=== PATIENT | female | born 1955 | race Caucasian/White ===

== ENCOUNTER 2017-04-11 15:47 | Outpatient (CLI) | payer BC | END 2017-04-11 15:48 | disposition home or self-care (01) | LOC: BICMAMMO 15:47 | PROVIDERS: ATTEND Obstetrics & Gynecology | DX: Z12.31 Encounter for screening mammogram for malignant neoplasm of breast (principal); Z80.3 Family history of malignant neoplasm of breast | CPT/HCPCS: 77063; 77067 ==

== ENCOUNTER 2017-12-15 08:03 | Outpatient (CLI) | payer BC | END 2017-12-15 08:04 | disposition home or self-care (01) | LOC: BICMAMMO 08:03 | PROVIDERS: ATTEND Obstetrics & Gynecology | DX: Z12.31 Encounter for screening mammogram for malignant neoplasm of breast (principal); R92.1 Mammographic calcification found on diagnostic imaging of breast; Z80.3 Family history of malignant neoplasm of breast | CPT/HCPCS: 77063; 77067 ==

== ENCOUNTER 2020-01-27 09:49 | Outpatient (CLI) | payer MEDICARE, BC ==
--- NOTE | 2020-01-27 10:39 | BD ---
EXAM: DEXA bone density examination HISTORY: 64-year-old postmenopausal female for screening COMPARISON: None FINDINGS: L1--bone mineral density 0.962 g/sq cm; T score -0.3 L2--bone mineral density 0.912 g/sq cm; T score -1.1 L3--bone mineral density 0.917 g/sq cm; T score -1.5 L4--bone mineral density 0.920 g/sq cm; T score -1.3 Total L1-L4--bone mineral density 0.928 g/sq cm; T score -1.1 Left femoral neck--bone mineral density0.611; T score -2.1 Total proximal left femur--bone mineral density 0.816; T score 1.0 IMPRESSION: Osteopenia. This patient has a 10 year WHO fracture risk of a major osteoporotic fracture of 20% and of a hip fracture of 1.9%.
--- NOTE | 2020-01-27 10:50 | MMO ---
Bilateral MAMMO Bilat Screen [facility]. CLINICAL HISTORY: Patient is 64 years old and is seen for screening. The patient has no family history of breast cancer. The patient has no personal history of cancer. VIEWS: The views performed were: bilateral craniocaudal with tomosynthesis and bilateral mediolateral oblique with tomosynthesis. FILMS COMPARED: The present examination has been compared to prior imaging studies performed at [facility] on 04/11/2017 and 12/15/2017, and at [facility] on 11/21/2015. This study has been interpreted with the assistance of computer-aided detection. MAMMOGRAM FINDINGS: The breasts are heterogeneously dense, which could obscure a lesion on mammography. There are stable benign appearing calcifications seen in both breasts. Nodularity is stable. There are no suspicious masses, suspicious calcifications, or new areas of architectural distortion. IMPRESSION: THERE IS NO MAMMOGRAPHIC EVIDENCE OF MALIGNANCY. A ROUTINE FOLLOW-UP MAMMOGRAM IN 1 YEAR IS RECOMMENDED. THE RESULTS OF THIS EXAM WERE SENT TO THE PATIENT. ACR BI-RADS Category 2 - Benign finding MAMMOGRAPHY NOTE: 1. A negative mammogram report should not delay a biopsy if a dominant of clinically suspicious mass is present. 2. Approximately 10% to 15% of breast cancers are not detected by mammography. 3. Adenosis and dense breasts may obscure an underlying neoplasm. Reported by: JENNIFER BENAVIDES MD Electonically Signed: [id number]
== END 2020-01-27 09:50 | disposition home or self-care (01) ==
LOC: BICMAMMO 09:49
PROVIDERS: ATTEND Registered Nurse
DX: Z12.31 Encounter for screening mammogram for malignant neoplasm of breast (principal); Z13.820 Encounter for screening for osteoporosis; Z78.0 Asymptomatic menopausal state; M85.89 Other specified disorders of bone density and structure, multiple sites
CPT/HCPCS: 77063; 77067; 77080

== ENCOUNTER 2021-02-15 13:26 | Outpatient (CLI) | payer MEDICARE, BC | END 2021-02-15 13:27 | disposition home or self-care (01) | LOC: BICMAMMO 13:26 | PROVIDERS: ATTEND Registered Nurse | DX: Z12.31 Encounter for screening mammogram for malignant neoplasm of breast (principal) | CPT/HCPCS: 77063; 77067 ==

== ENCOUNTER 2022-02-18 12:44 | Outpatient (CLI) | payer MEDICARE, BC | END 2022-02-18 12:45 | disposition home or self-care (01) | LOC: BICMAMMO 12:44 | PROVIDERS: ATTEND Registered Nurse | DX: Z12.31 Encounter for screening mammogram for malignant neoplasm of breast (principal); M85.89 Other specified disorders of bone density and structure, multiple sites; R92.1 Mammographic calcification found on diagnostic imaging of breast; Z78.0 Asymptomatic menopausal state | CPT/HCPCS: 77063; 77067; 77080 ==

== ENCOUNTER 2022-08-22 10:16 | Outpatient (CLI) | payer MEDICARE, BC | END 2022-08-22 10:17 | disposition home or self-care (01) | LOC: BICMAMMO 10:16 | PROVIDERS: ATTEND Registered Nurse | DX: R92.8 Other abnormal and inconclusive findings on diagnostic imaging of breast (principal); R92.1 Mammographic calcification found on diagnostic imaging of breast | CPT/HCPCS: 77065; G0279 ==

== ENCOUNTER 2024-02-24 13:08 | Outpatient (CLI) | payer MEDICARE, BC | END 2024-02-24 13:09 | disposition home or self-care (01) | LOC: BICMAMMO 13:08 | PROVIDERS: ATTEND Registered Nurse | DX: Z12.31 Encounter for screening mammogram for malignant neoplasm of breast (principal); Z78.0 Asymptomatic menopausal state; M85.89 Other specified disorders of bone density and structure, multiple sites; M81.0 Age-related osteoporosis without current pathological fracture; Z80.3 Family history of malignant neoplasm of breast | CPT/HCPCS: 77063; 77067; 77080 ==

== ENCOUNTER 2024-03-29 19:53 | Inpatient (IN) | payer MEDICARE, BC ==
[2024-03-29 22:28] VITALS: BMI 29.9
[2024-03-29] MEDS ORDERED: Acetaminophen 650 MG Suppository PR PRN (23:45)
[2024-03-29] MEDS ORDERED: Acetaminophen 325 MG TAB PO PRN (23:45)
[2024-03-29] MEDS: Sodium Chloride 0.9% 1,000 ML IV SCH (23:51)
[2024-03-30 01:30] LABS: Troponin I 0.025 ng/mL (< 0.028)
[2024-03-30 04:34] LABS: #Basophils 0.04 10x3/uL (0.0-0.2); %Basophils 0.5 % (0.0-1.0); %Lymphocytes 28.7 % (21.0-51.0); %Monocytes 6.5 % (0.0-10.0); %Neutrophils 60.1 % (42.0-75.0); Hematocrit 38.9 % (36.0-47.0); Hemoglobin 12.9 g/dL (12.0-16.0); Mean Corpuscular HGB CONC 33.2 g/dL (32.0-36.0); Mean Corpuscular Volume 90.5 fL (78.0-98.0); Mean Platelet Volume 10.2 fL (7.4-10.4); Platelet Count 204 10x3/uL (130-400)
[2024-03-30] MEDS: Alendronate Sodium 70 mg Tablet PO SCH (04:38)
[2024-03-30 04:56] LABS: Hemoglobin A1c 5.7 % (4.0-6.0)
[2024-03-30 04:59] LABS: Anion Gap 12 mmol/L (10-20); BUN (Urea Nitrogen) 15 mg/dL (9.8-20.1); Calc. Creatinine Clearance 102 mL/min (70-130); Calcium 9.8 mg/dL (7.8-10.44); Carbon Dioxide 23 mmol/L (23-31); Cardiac Risk 4.4 (Less than 4.5); Chloride 108 mmol/L (98-107); Cholesterol 210 mg/dl (< 200 Desired); Estimated GFR 97; Glucose 115 mg/dL (80-115); HDL Cholesterol 48 mg/dL (>60 Neg Risk); LDL Cholesterol, Calculated 127 mg/dL; Potassium 3.4 mmol/L (3.5-5.1); Sodium 140 mmol/L (136-145); Triglycerides 173 mg/dL (Less than 150)
[2024-03-30 05:03] LABS: Troponin I 0.026 ng/mL (< 0.028)
[2024-03-30] MEDS ORDERED: Electrolyte Replacement Protocol 1 EACH FS SCH (07:57)
[2024-03-30] MEDS ORDERED: Non-Formulary Item 1 EACH (Zinc Gluconate [Zinc] 50 MG Tablet) PO SCH (09:00)
[2024-03-30] MEDS ORDERED: Aspirin 81 mg Enteric Coated Tablet PO SCH (09:00)
[2024-03-30] MEDS: Lisinopril 10 MG TAB PO SCH (10:03)
[2024-03-30] MEDS: Hydrochlorothiazide 25 MG TAB PO SCH (10:04)
[2024-03-30] MEDS: Cholecalciferol 1,000 UNITS (25 MCG) TAB PO SCH (10:04)
[2024-03-30] MEDS: Ascorbic Acid 500 mg Chewable Tablet PO SCH (10:04)
[2024-03-30] MEDS: Fish Oil 1,000 MG CAP PO SCH (10:05)
[2024-03-30] MEDS: Potassium Chloride 20 MEQ TAB PO SCH (10:05)
[2024-03-30] MEDS: Magnesium 2 GM/50 ML(in water) 2 GM in Premix 1 BAG IVPB SCH (18:08)
[2024-03-30] MEDS ORDERED: Clopidogrel Bisulfate 300 MG TAB PO SCH (18:15)
[2024-03-30] MEDS: Clopidogrel Bisulfate 75 MG TAB PO SCH (19:30)
[2024-03-30] MEDS ORDERED: Clopidogrel Bisulfate 75 MG TAB PO SCH (21:00)
[2024-03-30] MEDS ORDERED: Atorvastatin Calcium 40 MG TAB PO SCH (21:00)
[2024-03-30] MEDS: Magnesium Oxide 400 MG TAB PO SCH (21:12)
[2024-03-30] MEDS: Rosuvastatin 20 MG TAB PO SCH (21:12)
[2024-03-30] MEDS: Loratadine 10 MG TAB PO SCH (21:12)
[2024-03-30] MEDS: Aspirin 81 mg Enteric Coated Tablet PO SCH (21:12)
[2024-03-31 08:27] LABS: Anion Gap 13 mmol/L (10-20); BUN (Urea Nitrogen) 17 mg/dL (9.8-20.1); Calc. Creatinine Clearance 82 mL/min (70-130); Calcium 9.5 mg/dL (7.8-10.44); Carbon Dioxide 25 mmol/L (23-31); Chloride 102 mmol/L (98-107); Estimated GFR 81; Glucose 123 mg/dL (80-115); Magnesium 2.2 mg/dL (1.6-2.6); Sodium 136 mmol/L (136-145)
[2024-03-31] MEDS: Clopidogrel Bisulfate 75 MG TAB PO SCH (08:43)
[2024-03-31 12:45] VITALS: TEMP 97.7
[2024-03-31 18:31] VITALS: BP 148/80
== END 2024-03-31 19:41 | disposition home or self-care (01) | DRG 64 ==
LOC: 2SE 21:04 → OBSVTOIN 03-30 12:40
PROVIDERS: ADMIT Internal Medicine; ATTEND Internal Medicine
DX: I63.9 Cerebral infarction, unspecified (principal); G93.6 Cerebral edema; G81.91 Hemiplegia, unspecified affecting right dominant side; I5A Non-ischemic myocardial injury (non-traumatic); I10 Essential (primary) hypertension; E78.5 Hyperlipidemia, unspecified; E87.6 Hypokalemia; E83.42 Hypomagnesemia; E66.9 Obesity, unspecified; Z68.31 Body mass index [BMI] 31.0-31.9, adult; E86.0 Dehydration; Z88.2 Allergy status to sulfonamides; Z88.5 Allergy status to narcotic agent; Z90.49 Acquired absence of other specified parts of digestive tract; Z90.89 Acquired absence of other organs; Z98.51 Tubal ligation status; Z79.899 Other long term (current) drug therapy; Z79.82 Long term (current) use of aspirin
CPT/HCPCS: 36415; 70551; 80048; 80061; 83036; 83735; 84443; 84484; 85025; 93306; G0378; J3475; J7030